=== PATIENT | male | born 1990 | race Two or more races ===

== ENCOUNTER 2023-07-30 13:33 | Emergency (ER) | payer MEDICAID, OTHER ==
[~2023-07-30] VITALS: Ht 162.6 cm; Wt 71.4 kg
[2023-07-30 15:22] VITALS: BP 116/54; PULSE 75; RESP 18; TEMP 99.2; O2SAT 100
[2023-07-30] MEDS ORDERED: ONDANSETRON ODT 4 MG TAB PO ONE (16:15)
[2023-07-30] MEDS ORDERED: DICYCLOMINE HCL (10MG/ML) 2 ML AMPULE IM ONE (16:15)
[2023-07-30 18:05] LABS: COVID19 ANTIGEN SOFIA FIA NEGATIVE (NEGATIVE); Rapid Influenza A Negative (Negative); Rapid Influenza B Negative (Negative)
[2023-07-30] MEDS ORDERED: ZOFR4T PO (18:42)
== END 2023-07-30 18:47 | disposition home or self-care (01) ==
LOC: ER 13:33
DX: A08.4 Viral intestinal infection, unspecified (principal); Z20.822 Contact with and (suspected) exposure to COVID-19
CPT/HCPCS: 36415; 87426; 87804; 96372; 99283; J0500; Q0162